=== PATIENT | female | born 1970 | race Caucasian/White ===

== ENCOUNTER 2025-01-16 08:29 | Outpatient (CLI) | payer OTHER, SELFPAY ==
--- NOTE | ~2025-01-16 | XR_ITS ---
EXAMINATION: XR shoulder LT min 2V DATE: 01/16/2025 08:50 INDICATION: Left shoulder pain TECHNIQUE: 4 images of the left shoulder were obtained. COMPARISON: None FINDINGS: Normal alignment. No fracture. Glenohumeral joint is normal. Mild joint space narrowing in the left acromial clavicular joint. IMPRESSION: 1. No fracture. No dislocation. 2. Mild joint space narrowing in the left acromioclavicular joint. If symptoms persist or worsen, consider a short-term follow-up study or MRI imaging for further assessment. Reviewed, dictated and finalized at location Q. IMPRESSION: 1. No fracture. No dislocation. 2. Mild joint space narrowing in the left acromioclavicular joint. If symptoms persist or worsen, consider a short-term follow-up study or MRI nury ging for further assessment.
== END 2025-01-16 08:30 | disposition home or self-care (01) ==
LOC: MICIMG 08:37
PROVIDERS: PCP Nurse Practitioner Family; Visit Provider Nurse Practitioner Family
DX: M25.512 Pain in left shoulder (principal); R93.6 Abnormal findings on diagnostic imaging of limbs
CPT/HCPCS: 73030